=== PATIENT | female | born 2000 | race Caucasian/White ===

== ENCOUNTER 2024-06-19 18:39 | Emergency (ER) | payer OTHER ==
[~2024-06-19] VITALS: Ht 175.3 cm; Wt 81.7 kg
[2024-06-19 21:11] LABS: CORONAVIRUS COVID-19 AG Negative (NEGATIVE); INFLUENZA A AG Negative (NEGATIVE); INFLUENZA B AG Negative (NEGATIVE)
[2024-06-19] MEDS ORDERED: Benzonatate 100 MG Cap PO ONE (21:20)
[2024-06-19] MEDS ORDERED: BENZ100A PO (21:23)
== END 2024-06-19 19:41 | disposition home or self-care (01) ==
LOC: ER 18:39
PROVIDERS: Emergency Medicine
DX: R04.2 Hemoptysis (principal); F17.290 Nicotine dependence, other tobacco product, uncomplicated
CPT/HCPCS: 71045; 87428-QW; 99283-25; A9270